=== PATIENT | male | born 1935 | race Caucasian/White ===

== ENCOUNTER 2016-08-04 16:08 | Inpatient (IN) | payer MEDICARE, OTHER ==
--- NOTE | ~2016-08-04 | HP ---
History And Physical [place] [id number] [facility] [place]. [address] NAME: TODD MCCORMACK : 39 STATUS : ADM IN [facility]#: [id number] AGE: 81 ADM/REG DATE : 08/04/16 MR#: [id number] REPORT SERV DATE: 08/04/16 DICTATED BY: RAJ MARISCAL DATE: 08/04/16 REPORT STATUS : Draft TRANSCRIBED BY: MODL DATE: 08/04/16 DATE OF ADMISSION: 08/04/2016 CHIEF COMPLAINT: Fall at home, hip pain, and generalized weakness. HISTORY OF PRESENT ILLNESS: This is a 81-year-old male, who presents to the emergency room at [facility] with the above-mentioned complaint. He has a history of chronic kidney disease, chronic systolic heart failure, atrial fibrillation on anticoagulation and a biventricular pacemaker placed as well. History is obtained from the patient and reviewing data available on the [facility] system. I also spoke to Dr. Gould, the ER physician, who gave me some other history as well. According to available data, Mr. Mccormack says he had been doing poorly at home for about almost two to three weeks now. He had a severe episode of constipation lasting several days, and during this process, he apparently had strained a lot despite taking laxatives and stool softeners, and although his constipation is relieved, he developed severe pain in his back and hip. He thinks it is because of the straining he had to do. Since then, although he has been having regular bowel movements, his pain has escalated, become quite excruciating, and as a result of which, he has been bed-bound or couch-bound. He has trouble even getting up off the couch, and early this morning around 3 a.m., when he tried to go to the bathroom, he fell down while getting up off his couch. He was unable to get up because of his pain in the back which he had been having in the last few days and called 911. EMS arrived helped him on to the couch, checked him out, he had nothing new, and they left. This patient remained in the chair until later in the day when he again attempted to get up and was unable to do so. He was in a lot of pain and just could not even get around his dwelling and they decided to bring him to the emergency room to be evaluated. During the fall he had early in the morning, he had also hit his head on the floor and had a closed head injury. In the emergency room, initial workup including CT scan of the brain was negative. The EKG showed dual-paced rhythm, nothing new, he had acute on chronic kidney disease, acute on chronic systolic heart failure, along with right hip pain. He also had elevated troponin, and of concern was his anticoagulation therapy and head trauma. Hospitalist Service was asked to admit him for further evaluation and treatment. At the time of my evaluation, Mr. Mccormack appeared to be generally weak, otherwise able to give a reliable history. He denied any recent chest pain, palpitations, or orthopnea. He denied any cough, hemoptysis, night sweats, or weight loss. He has not had any recent loss of consciousness. Denied any recent fevers, chills, nausea, vomiting, or diarrhea. No history of recent hematemesis, hematochezia, or hematuria. No history of recent travel or exposures. PAST MEDICAL HISTORY: Significant for history of chronic kidney disease, history of chronic systolic congestive heart failure, and ischemic cardiomyopathy with a biventricular pacemaker. He has atrial fibrillation and is on anticoagulation, on warfarin. He also has COPD due to smoking and has diabetes mellitus. History And Physical [address] [address] NAME: TODD MCCORMACK : 39 STATUS : ADM IN [facility]#: [id number] AGE: 81 ADM/REG DATE : 08/04/16 MR#: [id number] REPORT SERV DATE: 08/04/16 DICTATED BY: RAJ MARISCAL DATE: 08/04/16 REPORT STATUS : Draft TRANSCRIBED BY: MODPeter DATE: 08/04/16 SOCIAL HISTORY: He has about 40-to 80-orbk-daon history of smoking, and denies alcohol use. He has no recreational drug use. Most of his working career has been with the . He retired as a [employer] in the [employer]. FAMILY HISTORY: Noncontributory. MEDICATIONS: His medications at home were reviewed by me in the chart today and reordered by me. REVIEW OF SYSTEMS: As in history of present illness. All other systems were reviewed in detail and are quite unremarkable. PHYSICAL EXAMINATION: GENERAL: This is a pleasant 81-year-old, not in any acute distress. HEENT: His head is atraumatic, normocephalic. He is alert, awake, oriented to time, place, and person. Pupils are equal, reacting to light and accommodating. External ocular muscles are intact. Membranes are moist and pink. Sclerae are nonicteric. NECK: Supple with no jugular venous distention, lymphadenopathy, or thyromegaly. LUNGS: Clear to auscultation with no wheezes, rubs, or crackles. HEART: Heart sounds were regular with no murmurs, rubs, or gallops. ABDOMEN: Soft, nontender. Bowel sounds are present. EXTREMITIES: Showed no cyanosis, clubbing, or edema. His lower extremities showed bilateral foot ulcers. NEUROLOGIC: Grossly intact. No focal sensory or motor deficits. Higher functions appeared intact. Gait was not examined. VITAL SIGNS: Vital signs today showed a temperature of 99.8, pulse 73, respirations 19 a minute, blood pressure was 103/58, and oxygen saturations were 94% breathing 2 L of oxygen via nasal cannula. LABORATORY DATA: Reviewed on the [facility] system showed sodium of 140, potassium 3.6, chloride 95, CO2 of 37, BUN was 47, with a creatinine of 2.18, which is about his baseline. His blood glucose was 113. His troponin was 0.19 today. No prior values to compare this with. His BNP was 527 today. CBC showed a white blood cell count of 10,900, hemoglobin was 11, hematocrit 34.9, and platelet count was 167,000. His prothrombin time was 29.3 with an INR of 2.8. Urinalysis was grossly unremarkable today. Films of the CT scan of the brain were reviewed by me on the PACS today and interpreted by me, and official radiology comments were also reviewed. There is no acute intracranial pathology at this time. A 12-lead EKG done in the emergency room was reviewed and interpreted by me. There is dual-paced rhythm. IMPRESSION: 1. Generalized weakness. 2. Fall at home. 3. Closed head trauma. 4. Right hip and back pain. 5. Acute on chronic systolic congestive heart failure. 6. Elevated troponin. History And Physical [address] [place]. [address] NAME: TODD MCCORMACK EUEGNIA : 39 STATUS : ADM IN PAT#: [id number] AGE: 81 ADM/REG DATE : 08/04/16 MR#: [id number] REPORT SERV DATE: 08/04/16 DICTATED BY: RAJ MARISCAL DATE: 08/04/16 REPORT STATUS : Draft TRANSCRIBED BY: SHIRLEY DATE: 08/04/16 7. Chronic kidney disease. 8. Atrial fibrillation, on anticoagulation. 9. Ischemic cardiomyopathy with biventricular pacemaker. 10.Chronic obstructive pulmonary disease. 11.Diabetes mellitus. PLAN: We will admit Mr. Mccormack to the Hospitalist Service with telemetry for neuro checks. His closed head injury while on anticoagulation and is concerning. We will follow him closely with neuro checks. His INR is 2.8. We will hold his warfarin and continue to monitor in the morning. We will start him on IV diuretics cautiously and follow chemistry, electrolytes, and replete as needed. We will also follow his troponin serially every eight hours to rule out any acute coronary syndrome, although it may be due to his chronic kidney disease. We will reassess in the morning and start him back on anticoagulation if safe. We will also start him on blood sugar control with NovoLog given subcutaneously per sliding scale and check his A1c. He will also be placed on bronchodilator treatments, and we will continue his supplemental oxygen therapy. He will be on SCDs for DVT prophylaxis while here. I have discussed above plans with the patient. His questions were answered, and he is agreeable to the above recommendations. Hospitalist Service will be following him during his stay here. /SHIRLEY Raj Mariscal M.D. / [id number] CC: Adrianna Ramirez M.D.
--- NOTE | ~2016-08-04 | DS ---
Discharge Summary [facility] [address] [place]. [address] NAME: TODD CAIN : 39 STATUS : DIS IN PAT#: [id number] AGE: 81 ADM/REG DATE : 08/04/16 MR#: [id number] REPORT SERV DATE: 08/10/16 DICTATED BY: TYRELL VELARDE DATE: 08/07/16 REPORT STATUS : Draft TRANSCRIBED BY: MODPeter DATE: 08/07/16 ADMISSION DATE: 08/04/2016 DISCHARGE DATE: 08/07/2016 PRINCIPAL DIAGNOSIS: Severe weakness and gait disorder exacerbated by severe low back pain due to lumbosacral strain. SECONDARY DIAGNOSES: 1. Acute on chronic systolic heart failure, ejection fraction 45% with severe lymphedema. 2. Venous stasis dermatitis. 3. 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 4. Atrial fibrillation. PRESENT ILLNESS: Please see Dr. Hdz's dictation on 08/04/2016. HOSPITAL COURSE: Admitted with falls. There was a concern about closed head injury; however, the main concern was of the severe pain and immobility. The patient had a negative x-rays of his hips, but the exam was consistent with lumbosacral strain. He actually had some response to antispasmodics, able to participate in physical therapy; however, he was too weak to go home. He was diuresed effectively. Podiatry checked out his ulcers and local care was all that was recommended. He was placed back into his unna boots and was referred to Physical Therapy and transferred to [facility] on 08/07/2016. Low-sodium, 1800-calorie ADA diet. Physical Therapy per facility, Levemir 50 with NovoLog 10 with meals of 70/30 three times a day he had at home would be used. He was continued on Demadex 50 daily, potassium, carvedilol 6.25 b.i.d., spironolactone 25 daily, Plaquenil, Lipitor, baclofen p.r.n., DuoNebs p.r.n., TAVARES inhibitor p.r.n. It should be noted he is found to be iron deficient during his hospitalization, received intravenous iron, which he tolerated well. Follow up with Dr. Natasha Canada following at [facility]. TIME SPENT: Greater than 30 minutes were spent with the patient on discharge planning on discharge day. EFRAIN/SHIRLEY Tyrell Velarde M.D. / [id number] CC: Adrianna Bravo M.D. [facility]
[~2016-08-04 16:08] MED LIST: ADVAIR250 INH; ALBUTEROL; C5 PO; COREG25 PO; DIGITEK0.125 MG PO; L40 PO; LOTE10 PO; NORCO1 TA2 PO; NOVOLOGMIX SC; NOVOPEN SC; OS500+D PO; PLAQ200B PO; PRAV10 PO; PREDNISOL5 PO; PROAIR HFA INH; SPIRIVA INH; VITAMIN B-121000 MC1 SL; VITAMIN D1000 UNI1 PO; VITAMIN D31000 UNIT PO; Z100 PO
[2016-08-04 16:31] LABS: BASOPHILS 0.2 %; BASOPHILS ABSOLUTE 0.02 10/3/uL (0.0-0.16); EOSINOPHILS 1.8 %; ER CBC TAT 0 Hrs 09 Mins; HEMATOCRIT 34.9 % (40.0-51.0); IMMATURE GRANULOCYTES 0.3 %; IMMATURE GRANULOCYTES ABSOLUTE 0.03 10/3/uL (0.0-0.11); LYMPHOCYTES 10.8 %; LYMPHOCYTES ABSOLUTE 1.18 10/3/uL (0.67-4.30); MEAN CORPUS HGB CONC 31.5 g/dL (32.0-36.0); MEAN CORPUSCULAR HEMOGLOB 32.2 pg (26.0-34.0); MEAN PLATELET VOLUME 10.3 fL (9.2-13.0); MONOCYTES 7.6 %; MONOCYTES ABSOLUTE 0.83 10/3/uL (0.21-1.20); NEUTROPHILS 79.3 %; NEUTROPHILS ABSOLUTE 8.63 10/3/uL (2.02-8.40); PLATELET COUNT 167 10/3/uL (150-400); RBC DISTRIBUTION WIDTH 17.2 % (12.0-16.0); RED CELL COUNT 3.42 10/6/uL (4.7-6.1); WHITE BLOOD CELLS 10.9 10/3/uL (4.5-10.5)
[2016-08-04 16:32] LABS: MANUAL DIFF NO %
[2016-08-04 16:36] LABS: ASCORBIC ACID (UR NOT ORDER) NEG (NEG); BILIRUBIN, URINE NEGATIVE (NEG); ER URINALYSIS TAT 0 Hrs 14 Mins; KETONE, URINE NEGATIVE (NEG); LEUKOCYTE ESTERASE(NOT OR NEG (NEG); NITRITE (URINE) NEG (NEG); WBC (NOT ORDERED) (RFLEX) < 1 (0-5)
[2016-08-04 16:39] LABS: INTERNATIONAL NORMAL RATI 2.8 UNITS (-); PROTIME (NOT ORD) 29.3 SEC (12.0-14.5)
[2016-08-04 16:46] LABS: BUN (BLOOD UREA NITROGEN) 47 MG/DL (6-23); CALCIUM, SERUM 8.8 MG/DL (8.5-10.4); CHLORIDE, SERUM 95 MMOL/L (96-112); CO2 (CARBON DIOXIDE) 37 MMOL/L (24-34); CREATININE 2.18 MG/DL (0.70-1.30); GFR AFRICAN AMERICAN 32 ML/MIN (>=60); GFR NON AFRICAN AMERICAN 28 ML/MIN (>=60); GLUCOSE, SERUM 113 MG/DL (60-99); POTASSIUM, SERUM 3.6 MMOL/L (3.5-5.3); SODIUM, SERUM 140 MMOL/L (135-148)
[2016-08-04 16:47] LABS: CHEST PAIN PROFILE TAT 0 Hrs 25 Mins; TROPONIN I 0.19 NG/ML (<0.05)
[2016-08-04 16:49] LABS: INFLUENZA A SCREEN NEGATIVE (NEGATIVE); INFLUENZA B SCREEN NEGATIVE (NEGATIVE)
[2016-08-04] MEDS ORDERED: Z300 PO (18:34)
[2016-08-04] MEDS ORDERED: ADVAIR250 INH (18:34)
[2016-08-04] MEDS ORDERED: LIPITOR10 PO (18:35)
[2016-08-04] MEDS ORDERED: B12100T PO (18:35)
[2016-08-04] MEDS ORDERED: TUMSROLL PO (18:36)
[2016-08-04] MEDS ORDERED: COREG12 PO (18:37)
[2016-08-04] MEDS ORDERED: NORCO1 TA2 PO (18:37)
[2016-08-04] MEDS ORDERED: NEUR100 PO (18:37)
[2016-08-04] MEDS ORDERED: LAN125 PO (18:38)
[2016-08-04] MEDS ORDERED: DUONEB INH (18:38)
[2016-08-04] MEDS ORDERED: PLAQ200B PO (18:38)
[2016-08-04] MEDS ORDERED: MIRALAX POWDER1 PKT PO (18:40)
[2016-08-04] MEDS ORDERED: ZAROX2.5B PO (18:40)
[2016-08-04] MEDS ORDERED: NOVOLOGMIX SC ×2 (18:41→18:42)
[2016-08-04] MEDS ORDERED: P5 PO (18:42)
[2016-08-04] MEDS ORDERED: STIOLTO RESPIMAT4 GM INH (18:43)
[2016-08-04] MEDS ORDERED: DEMA100 PO (18:43)
[2016-08-04] MEDS ORDERED: VITAMIN D31000 UNIT PO (18:43)
[2016-08-04] MEDS ORDERED: COUMADIN4 MG PO (18:44)
[2016-08-04] MEDS ORDERED: MONODOX100 MG PO (18:45)
[2016-08-05 06:28] LABS: BASOPHILS 0.2 %; BASOPHILS ABSOLUTE 0.02 10/3/uL (0.0-0.16); EOSINOPHILS 2.2 %; EOSINOPHILS ABSOLUTE 0.22 10/3/uL (0.0-0.53); HEMOGLOBIN 10.5 g/dL (13.6-17.8); IMMATURE GRANULOCYTES 0.3 %; IMMATURE GRANULOCYTES ABSOLUTE 0.03 10/3/uL (0.0-0.11); LYMPHOCYTES 14.1 %; LYMPHOCYTES ABSOLUTE 1.38 10/3/uL (0.67-4.30); MANUAL DIFF NO %; MEAN CORPUS HGB CONC 30.9 g/dL (32.0-36.0); MEAN CORPUSCULAR VOLUME 103.7 fL (80-100); MEAN PLATELET VOLUME 11.2 fL (9.2-13.0); MONOCYTES 6.3 %; MONOCYTES ABSOLUTE 0.62 10/3/uL (0.21-1.20); NEUTROPHILS 76.9 %; NEUTROPHILS ABSOLUTE 7.55 10/3/uL (2.02-8.40); PLATELET COUNT 174 10/3/uL (150-400); RBC DISTRIBUTION WIDTH 17.2 % (12.0-16.0); RED CELL COUNT 3.28 10/6/uL (4.7-6.1); WHITE BLOOD CELLS 9.8 10/3/uL (4.5-10.5)
[2016-08-05 06:35] LABS: INTERNATIONAL NORMAL RATI 2.7 UNITS (-); PROTIME (NOT ORD) 28.2 SEC (12.0-14.5)
[2016-08-05 08:58] LABS: PHOSPHORUS, SERUM 3.5 MG/DL (2.5-4.5)
[2016-08-05 09:00] LABS: TROPONIN I 0.2 NG/ML (<0.05); ULTRASENSITIVE TSH 1.18 MCIU/ML (0.358-3.740)
[2016-08-05 10:03] LABS: PROCALCITONIN 0.15 ng/mL (<0.5)
[2016-08-05 12:19] LABS: DIGOXIN 0.1 NG/ML (0.8-2.0)
[2016-08-05 13:11] LABS: FOLATE 34.3 NG/ML (>5.2)
[2016-08-06 05:56] LABS: BASOPHILS 0.1 %; BASOPHILS ABSOLUTE 0.01 10/3/uL (0.0-0.16); EOSINOPHILS 2.4 %; EOSINOPHILS ABSOLUTE 0.25 10/3/uL (0.0-0.53); HEMATOCRIT 33.5 % (40.0-51.0); HEMOGLOBIN 10.5 g/dL (13.6-17.8); IMMATURE GRANULOCYTES 0.4 %; IMMATURE GRANULOCYTES ABSOLUTE 0.04 10/3/uL (0.0-0.11); LYMPHOCYTES 17.2 %; LYMPHOCYTES ABSOLUTE 1.83 10/3/uL (0.67-4.30); MEAN CORPUS HGB CONC 31.3 g/dL (32.0-36.0); MEAN CORPUSCULAR HEMOGLOB 32.3 pg (26.0-34.0); MEAN CORPUSCULAR VOLUME 103.1 fL (80-100); MEAN PLATELET VOLUME 11.1 fL (9.2-13.0); MONOCYTES 7.6 %; MONOCYTES ABSOLUTE 0.81 10/3/uL (0.21-1.20); NEUTROPHILS 72.3 %; NEUTROPHILS ABSOLUTE 7.69 10/3/uL (2.02-8.40); PLATELET COUNT 175 10/3/uL (150-400); RED CELL COUNT 3.25 10/6/uL (4.7-6.1); WHITE BLOOD CELLS 10.6 10/3/uL (4.5-10.5)
[2016-08-06 05:57] LABS: MANUAL DIFF NO %
[2016-08-06 06:03] LABS: INTERNATIONAL NORMAL RATI 2.5 UNITS (-); PROTIME (NOT ORD) 26.9 SEC (12.0-14.5)
[2016-08-06 06:07] LABS: CALCIUM, SERUM 8.5 MG/DL (8.5-10.4); CHLORIDE, SERUM 95 MMOL/L (96-112); CO2 (CARBON DIOXIDE) 36 MMOL/L (24-34); CREATININE 1.83 MG/DL (0.70-1.30); GFR AFRICAN AMERICAN 40 ML/MIN (>=60); GFR NON AFRICAN AMERICAN 34 ML/MIN (>=60); SODIUM, SERUM 139 MMOL/L (135-148)
[2016-08-06 06:08] LABS: BUN (BLOOD UREA NITROGEN) 51 MG/DL (6-23); GLUCOSE, SERUM 153 MG/DL (60-99)
[2016-08-07 05:02] LABS: INTERNATIONAL NORMAL RATI 2.8 UNITS (-); PROTIME (NOT ORD) 29.1 SEC (12.0-14.5)
[2016-08-07 05:10] LABS: CALCIUM, SERUM 8.3 MG/DL (8.5-10.4); CHLORIDE, SERUM 97 MMOL/L (96-112); CO2 (CARBON DIOXIDE) 36 MMOL/L (24-34); CREATININE 1.94 MG/DL (0.70-1.30); GFR AFRICAN AMERICAN 37 ML/MIN (>=60); GFR NON AFRICAN AMERICAN 32 ML/MIN (>=60); GLUCOSE, SERUM 160 MG/DL (60-99); SODIUM, SERUM 138 MMOL/L (135-148)
[2016-08-07 05:12] LABS: BUN (BLOOD UREA NITROGEN) 58 MG/DL (6-23)
[2016-11-21] MEDS ORDERED: LIPITOR10 PO (16:39)
[2016-11-21] MEDS ORDERED: Z300 PO (16:39)
[2016-11-21] MEDS ORDERED: BREO ELLIPTA 21 EACH INH (16:40)
[2016-11-21] MEDS ORDERED: LIOR10 PO (16:40)
[2016-11-21] MEDS ORDERED: LAN125 PO (16:40)
[2016-11-21] MEDS ORDERED: DUONEB INH ×2 (16:41)
[2016-11-21] MEDS ORDERED: NEUR100 PO (16:41)
[2016-11-21] MEDS ORDERED: INSNOV7030 SC (16:42)
[2016-11-21] MEDS ORDERED: NOVOLOGMIX SC ×2 (16:42)
[2016-11-21] MEDS ORDERED: T PO (16:43)
[2016-11-21] MEDS ORDERED: APRES10B PO (16:43)
[2016-11-21] MEDS ORDERED: CLARIT10 PO (16:43)
[2016-11-21] MEDS ORDERED: MIRALAX POWDER1 PKT PO (16:44)
[2016-11-21] MEDS ORDERED: P5 PO (16:44)
[2016-11-21] MEDS ORDERED: SPIRO25 PO (16:44)
[2016-11-21] MEDS ORDERED: COUMADIN6 MG PO (16:45)
[2016-11-21] MEDS ORDERED: TUMSROLL PO (16:45)
[2016-11-21] MEDS ORDERED: PLAQ200B PO (16:47)
== END 2016-08-07 17:37 | DRG 551 ==
LOC: ER 16:08 → 1SO 22:16
PROVIDERS: Emergency Medicine; Internal Medicine; Internal Medicine Pulmonary Disease
DX: S33.9XXA Sprain of unspecified parts of lumbar spine and pelvis, initial encounter (principal); I50.23 Acute on chronic systolic (congestive) heart failure; E11.22 Type 2 diabetes mellitus with diabetic chronic kidney disease; E11.42 Type 2 diabetes mellitus with diabetic polyneuropathy; S09.90XA Unspecified injury of head, initial encounter; E11.621 Type 2 diabetes mellitus with foot ulcer; D50.9 Iron deficiency anemia, unspecified; F17.210 Nicotine dependence, cigarettes, uncomplicated; I48.91 Unspecified atrial fibrillation; L97.521 Non-pressure chronic ulcer of other part of left foot limited to breakdown of skin; L97.519 Non-pressure chronic ulcer of other part of right foot with unspecified severity; J44.9 Chronic obstructive pulmonary disease, unspecified; N18.3 Chronic kidney disease, stage 3 (moderate); I87.2 Venous insufficiency (chronic) (peripheral); I25.5 Ischemic cardiomyopathy; M25.551 Pain in right hip; W08.XXXA Fall from other furniture, initial encounter; Z79.4 Long term (current) use of insulin; Z79.891 Long term (current) use of opiate analgesic; Z91.81 History of falling; Z79.899 Other long term (current) drug therapy; Z79.01 Long term (current) use of anticoagulants; Z95.0 Presence of cardiac pacemaker
CPT/HCPCS: 70450; 71010; 72170; 73502-RT; 80048; 80162; 81001; 82607; 82728; 82746; 82962; 83036; 83540; 83550; 83735; 83880; 84100; 84145; 84443; 84484; 85025; 85610; 85730; 87040; 87804; 93005; 93306; 94640; 96374; 97110-GP; 97116-GP; 97162-GP; 99285; A9270-GY; G8978-CL-GP; G8979-CL-GP; J1170; J1750; J1940; J2405